=== PATIENT | female | born 1975 | race Caucasian/White ===

== ENCOUNTER 2016-08-16 11:07 | Emergency (ER) | payer MEDICAID ==
[2016-08-16 11:12] VITALS: BP 114/63; PULSE 55; RESP 14; TEMP 97.9; O2SAT 96
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
== END 2016-08-16 14:27 | disposition home or self-care (01) ==
DX: S43.402A Unspecified sprain of left shoulder joint, initial encounter (principal); S40.012A Contusion of left shoulder, initial encounter; W22.8XXA Striking against or struck by other objects, initial encounter; Y93.12 Activity, springboard and platform diving
CPT/HCPCS: A4565

== ENCOUNTER → 2017-10-22 | Outpatient (CLI) | payer MEDICAID | LOC: BMCIMAGING 13:18 | PROVIDERS: ATTEND Internal Medicine Rheumatology | DX: M51.34 Other intervertebral disc degeneration, thoracic region (principal); M50.322 Other cervical disc degeneration at C5-C6 level; Q65.89 Other specified congenital deformities of hip | CPT/HCPCS: 86235-90; 86812-90 ==